=== PATIENT | female | born 1975 | race Native Hawaiian/Other Pacific Islander ===

== ENCOUNTER 2019-08-29 10:10 | Inpatient (IN) | payer OTHER ==
[2019-08-29] MEDS ORDERED: miSOPROStol 200 MCG TAB ONE (10:27)
[2019-08-29] MEDS ORDERED: OXYTOCIN 10 UNIT/1 ML INJ ONE (10:27)
[2019-08-29] MEDS ORDERED: TERBUTALINE 1 MG/1 ML INJ SUB-Q PRN (10:44)
[2019-08-29] MEDS ORDERED: ePHEDrine SULFATE 50 MG/1 ML INJ IV PRN (10:44)
[2019-08-29] MEDS ORDERED: TERBUTALINE 1 MG/1 ML INJ IVP PRN (10:44)
[2019-08-29] MEDS ORDERED: ACETAMINOPHEN 325 MG TAB PO PRN (10:48)
[2019-08-29] MEDS ORDERED: WITCH HAZEL/ GLYCERIN PAD TP PRN (10:48)
[2019-08-29] MEDS ORDERED: miSOPROStol 200 MCG TAB PR ONE (10:48)
[2019-08-29] MEDS ORDERED: LANOLIN/ZINC/DIMETHICONE (LANSINOH) 7 GM TP PRN (10:48)
[2019-08-29] MEDS ORDERED: diphenhydrAMINE 25 MG CAP PO PRN (10:48)
--- NOTE | 2019-08-29 10:55 | History and Physical Report ---
History of Present Illness Date of examination: 08/29/19 Date of admission: 08/29/2019 Chief complaint: Intense Labor Pains History of present illness: Late entry to care at [facility] , course complicated by AMA and a abnormal 1hour GTT of 195; Followed GDM Diet and did accuchecks. Co-kristen with Crispin. Past History Past Medical History: no pertinent history Past Surgical History: section Family/Genetic History: none Social history: no significant social history - Obstetrical History Expected Date of Delivery: 09/12/19 Actual Gestation: 38 Week(s) 0 Day(s) : 7 Para: 6 Number of Living Children: 6 Medications and Allergies Active Meds: Active Medications Ephedrine Sulfate (Ephedrine Sulfate) 10 mg IV Q2M PRN PRN Reason: Hypotension Oxytocin/Sodium Chloride (Pitocin/Ns 20 Unit/1000ml Drip) 20 units in 1,000 mls @ 125 mls/hr IV DIRECT MERYL Lactated Ringer's (Lactated Ringers) 1,000 mls @ 125 mls/hr IV DIRECT MERYL Clindamycin HCl (Cleocin 900 Mg/50 Ml) 900 mg in 50 mls @ 100 mls/hr IV Q8HR MERYL; Protocol Misoprostol (Cytotec) 600 mcg MA ONCE ONE Stop: 08/29/19 10:49 Terbutaline Sulfate (Brethine) 0.25 mg SUB-Q ONCE PRN PRN Reason: Hyperstimulation/Hypertonicity Terbutaline Sulfate (Brethine) 0.25 mg IVP ONCE PRN PRN Reason: Hyperstimulation/Hypertonicity Review of Systems All systems: negative - Physical Exam Breasts: Positive: normal Cardiovascular: Regular rate Lungs: Positive: Clear to auscultation, Normal air movement Abdomen: Positive: normal appearance, soft, normal bowel sounds Genitourinary (Female): Positive: normal external genitalia, normal perenium Uterus: Positive: enlarged Anus/Rectum: Positive: normal perianal skin Extremities: Positive: normal - Obstetrical FHR: category 1 Uterine Contraction Monitor Mode: External Cervical Dilatation: 9 (AROM of a moderate amount of clear fluid at 1016) Cervical Effacement Percentage: 100 station: +1 Uterine Contraction Pattern: Regular Uterine Tone Measurement Phase: Resting Uterine Contraction Intensity: Moderate Results All other labs normal. Assessment and Plan A: IUP @ 38 Weeks Category I Tracing Active Labor AMA Previous Delivery Hx of x 5 GBS Unknown Elevated 1 hour GTT P: Admit to L&D Per Routine Orders AROM GBS Prophylaxis Accucheck Anticipate
[2019-08-29] MEDS ORDERED: OXYTOCIN 20 UNIT/1000ML DRIP 20 UNITS/1,000 ML BAG IV SCH (11:00)
[2019-08-29] MEDS ORDERED: LACTATED RINGERS 1,000 ML IV SCH (11:00)
[2019-08-29 11:04] LABS: Hematocrit 36.8 % (30.3-42.9); Hemoglobin 12.6 gm/dl (10.1-14.3); Mean Corpuscular HGB Conc 34 % (30-34); Mean Corpuscular Volume 92 fl (79-97); Platelet Count 193 K/mm3 (140-440); Red Blood Count 4.01 M/mm3 (3.65-5.03); Red Cell Distribution Width 15.4 % (13.2-15.2)
--- NOTE | 2019-08-29 11:05 | Procedure Note ---
OB Delivery Note - Delivery Date of Delivery: 08/29/19 Surgeon: AVA BROWN Estimated blood loss: 200cc - Vaginal Delivery presentation: vertex Intrapartum events: precipitous labor- <3hr Delivery induction: none Delivery augmentation: rupture of membranes Delivery monitor: external FHT, external uterine Route of delivery: Delivery placenta: spontaneous Delivery cord: 3 umbilical vessels Episiotomy: none Delivery laceration: none Anesthesia: none Delivery comments: Precipitous of a live 7'8 male infant over a intact perineum with Apgars 8 and 9 at 1021 on 08/29/2019 without pain control. directly to maternal abd/chest, skin to skin contact. Short Cord observed. Spontaneous delivery of placenta complete and intact with Angel side presenting at 1029. Fundus is firm and midline located 4 below the U. Lochia is scant. 20U of Pitocin given IM; 600mcg of Cytotec placed rectally. Delayed cord clamping and cutting. Cord blood collected; Placenta discarded. - Infant A at 1 minute: 8 at 5 minutes: 9 Gender: Male (7'8)
[2019-08-29] MEDS: IBUPROFEN 600 MG TAB PO SCH ×2 (13:22→18:00)
[2019-08-29] MEDS ORDERED: OXYTOCIN 10 UNIT/1 ML INJ IM ONE (14:00)
[2019-08-29 23:54] LABS: Hematocrit 33.1 % (30.3-42.9); Hemoglobin 11.8 gm/dl (10.1-14.3)
[2019-08-30] MEDS: IBUPROFEN 600 MG TAB PO SCH ×3 (06:05→17:36)
--- NOTE | 2019-08-30 09:46 | Discharge Summary ---
Providers - Providers Date of Admission: 08/29/19 10:11 Date of discharge: 08/30/19 (1200) Attending physician: KRISTINE SHORT MD Primary care physician: KRISTINE SHORT MD Hospitalization Reason for admission: active labor Delivery: Episiotomy: none Laceration: none Other procedures: none complications: none Discharge diagnosis: IUP at term delivered baby: male Hospital course: See admission H&P; OB delivery summary; and PP progress notes Condition at discharge: Good Disposition: DC-01 TO HOME OR SELFCARE - Discharge Diagnoses (1) Status post normal vaginal delivery Status: Acute Plan - Provider Discharge Summary Activity: routine, no sex for 6 weeks, no heavy lifting 4 weeks, no strenuous exercise Diet: routine Instructions: routine Additional instructions: [] Smoking cessation referral if applicable(refer to patient education folder for contact #) [] Refer to [facility] Booklet Call your doctor immediately for: * Fever > 100.5 * Heavy vaginal bleeding ( >1 pad per hour) * Severe persistent headache * Shortness of breath * Reddened, hot, painful area to leg or breast * Drainage or odor from incision. * Keep incision clean and dry at all times and follow doctor's instructions regarding bathing/showering - Follow up plan Follow up: KRISTINE SHORT MD [Primary Care Provider] - 6 Weeks
[2019-08-30] MEDS: PRENATAL VIT27-FE FUMARATE-FOLIC ACID VIT TAB PO SCH (11:39)
[2019-08-31] MEDS: IBUPROFEN 600 MG TAB PO SCH ×3 (00:18→09:07)
[2019-08-31] MEDS: PRENATAL VIT27-FE FUMARATE-FOLIC ACID VIT TAB PO SCH (09:07)
[2019-08-31 16:25] VITALS: BP 110/60
== END 2019-08-31 15:30 | disposition home or self-care (01) | DRG 807 ==
LOC: TRG 10:10 → LD 10:10 → TRG 10:11 → LD 10:11 → OB 14:49
PROVIDERS: ADMIT Obstetrics & Gynecology; ATTEND Obstetrics & Gynecology
PROC: 10E0XZZ Delivery of Products of Conception, External Approach (ICD-10-PCS; principal; 2019-08-29)
DX: O34.211 Maternal care for low transverse scar from previous cesarean delivery (principal); Z37.0 Single live birth; Z3A.38 38 weeks gestation of pregnancy; Z88.0 Allergy status to penicillin; O62.3 Precipitate labor
CPT/HCPCS: 36415; 82962; 85014; 85018; 85027; 86850; 86900; 86901; G0378; J2590; J7120